=== PATIENT | male | born 1970 | race Caucasian/White ===

== ENCOUNTER 2017-05-18 13:18 | Emergency (ER) | payer SELFPAY, OTHER | END 2017-05-18 15:01 | disposition left against medical advice (07) | LOC: FTE 13:18 | DX: Z53.21 Procedure and treatment not carried out due to patient leaving prior to being seen by health care provider (principal) ==

== ENCOUNTER 2017-05-19 01:30 | Inpatient (IN) | payer OTHER ==
[2017-05-19] MEDS ORDERED: ONDANSETRON 4 MG INJ IV ×3 (02:00→10:30)
[2017-05-19] MEDS: PIPER-TAZO 3.375 GM IV (PMX) 100 ML IVPB ×3 (02:28→12:43)
[2017-05-19] MEDS: ACETAMINOPHEN 325 MG TAB PO (02:34)
[2017-05-19 06:54] LABS: ADD MAN DIFF? NO
[2017-05-19 06:56] LABS: WHITE BLOOD COUNT 7.6 10^3/ul (4.8-10.8)
[2017-05-19 06:56] LABS: BASOPHILS % 0.4 % (0.0-2.0); EOSINOPHILS # 0.2 10^3/ul (0.0-0.5); EOSINOPHILS % 2.8 % (0.0-7.0); HEMATOCRIT 42.3 % (42.0-52.0); HEMOGLOBIN 14.7 g/dl (14.0-18.0); LYMPHOCYTES # 1.7 10^3/ul (0.8-2.9); LYMPHOCYTES % 22.2 % (15.0-51.0); MEAN CORPUSCULAR HEMOGLOBIN 29.6 pg (29.0-33.0); MEAN CORPUSCULAR HGB CONC 34.8 g/dl (32.0-37.0); MEAN CORPUSCULAR VOLUME 85.1 fl (82.0-101.0); MEAN PLATELET VOLUME 9.8 fl (7.4-10.4); MONOCYTE # 0.8 10^3/ul (0.3-0.9); MONOCYTES % 10.5 % (0.0-11.0); NEUTROPHIL # 4.9 10^3/ul (1.6-7.5); NEUTROPHILS % 63.7 % (39.0-77.0); PLATELET COUNT 236 10^3/UL (140-415); RED BLOOD COUNT 4.97 10^6/ul (4.70-6.10)
[2017-05-19 07:21] LABS: ALANINE AMINOTRANSFERASE 40 IU/L (13-69); ALBUMIN/GLOBULIN RATIO 1.17; ALKALINE PHOSPHATASE 28 IU/L (42-121); ANION GAP 16 (8-16); ASPARTATE AMINO TRANSFERASE 23 IU/L (15-46); BILIRUBIN,INDIRECT 0.8 mg/dl (0-1.1); BILIRUBIN,TOTAL 0.8 mg/dl (0.2-1.3); BLOOD UREA NITROGEN 15 mg/dl (7-20); CALCIUM 8.8 mg/dl (8.4-10.2); CARBON DIOXIDE 25 mmol/L (21-31); CHLORIDE 106 mmol/L (97-110); CREATININE 0.96 mg/dl (0.61-1.24); GLUCOSE 140 mg/dl (70-220); MAGNESIUM 2.1 mg/dl (1.7-2.5); PHOSPHORUS 3.8 mg/dl (2.5-4.9); POTASSIUM 3.8 mmol/L (3.5-5.1); SODIUM 143 mmol/L (135-144); TOTAL PROTEIN 7.4 g/dl (6.1-8.1)
[2017-05-19] MEDS: morphine 2 MG INJ IV (08:24)
[2017-05-19] MEDS ORDERED: HYDROmorphONE (0.2 MG/ML) 10ML SYG IV ×3 (10:00)
[2017-05-19] MEDS ORDERED: PROCHLORPERAZINE 10 MG INJ IV (10:00)
[2017-05-19] MEDS ORDERED: MEPERIDINE 25 MG INJ IV (10:00)
[2017-05-19] MEDS ORDERED: FENTAnyl 50 MCG/ML VIAL IV ×3 (10:00)
[2017-05-19] MEDS ORDERED: DIPHENHYDRAMINE 50 MG INJ IV (10:00)
[2017-05-19] MEDS ORDERED: FENTAnyl 50 MCG/ML VIAL (10:02)
[2017-05-19] MEDS ORDERED: LIDOCAINE 2% (SDV) 5 ML INJ (10:02)
[2017-05-19] MEDS ORDERED: MIDAZOLAM 1 MG/ML 2 ML INJ (10:02)
[2017-05-19] MEDS ORDERED: DEXAMETHASONE 4 MG/ML 1 ML INJ (10:18)
[2017-05-19] MEDS ORDERED: ONDANSETRON 4 MG INJ (10:18)
[2017-05-19] MEDS ORDERED: KETOROLAC 30 MG INJ (10:24)
[2017-05-19] MEDS ORDERED: PROPOFOL 20 ML (10:26)
[2017-05-19] MEDS: BUPIVACAINE 0.25%/EPI (SDV) 30 ML INJ INJ (10:28)
[2017-05-19] MEDS ORDERED: OXYCODONE/ACETAMINOPHEN (5/325) TAB PO ×2 (10:30)
[2017-05-19] MEDS ORDERED: morphine 2 MG INJ IV (10:30)
[2017-05-19] MEDS ORDERED: DOCUSATE SODIUM 100 MG CAP PO (14:30)
[2017-05-19] MEDS ORDERED: KETOROLAC 30 MG INJ IV (14:30)
[2017-05-19] MEDS: metroNIDAZOLE 500 MG TAB PO (14:57)
[2017-05-19] MEDS: SOD CHLORIDE 0.9% 1,000 ML IV (14:58)
[2017-05-19] MEDS: CIPROFLOXACIN 500 MG TAB PO (17:56)
[2017-05-19] MEDS ORDERED: LACTOBACILLUS RHAMNOSUS CAP PO (21:00)
== END 2017-05-19 19:30 | disposition home or self-care (01) | DRG 395 ==
LOC: MS2 01:30
PROC: 0D9Q0ZX Drainage of Anus, Open Approach, Diagnostic (ICD-10-PCS; principal; 2017-05-19 10:03)
DX: K61.0 Anal abscess (principal); E66.9 Obesity, unspecified; Z68.34 Body mass index [BMI] 34.0-34.9, adult
CPT/HCPCS: 80053; 83735; 84100; 85025; 87070; 87075; 87116

== ENCOUNTER 2017-09-27 18:57 | Emergency (ER) | payer OTHER ==
[2017-09-27 22:22] LABS: ADD MAN DIFF? NO
[2017-09-27 22:23] LABS: BASOPHILS % 0.4 % (0.0-2.0); EOSINOPHILS # 0.2 10^3/ul (0.0-0.5); EOSINOPHILS % 2.2 % (0.0-7.0); HEMATOCRIT 43.9 % (42.0-52.0); HEMOGLOBIN 15.2 g/dl (14.0-18.0); LYMPHOCYTES # 2.6 10^3/ul (0.8-2.9); LYMPHOCYTES % 36.4 % (15.0-51.0); MEAN CORPUSCULAR HEMOGLOBIN 29.7 pg (29.0-33.0); MEAN CORPUSCULAR HGB CONC 34.6 g/dl (32.0-37.0); MEAN CORPUSCULAR VOLUME 85.7 fl (82.0-101.0); MEAN PLATELET VOLUME 10.1 fl (7.4-10.4); MONOCYTE # 0.9 10^3/ul (0.3-0.9); MONOCYTES % 11.7 % (0.0-11.0); NEUTROPHIL # 3.5 10^3/ul (1.6-7.5); NEUTROPHILS % 48.9 % (39.0-77.0); PLATELET COUNT 241 10^3/UL (140-415); RED BLOOD COUNT 5.12 10^6/ul (4.70-6.10); RED CELL DISTRIBUTION WIDTH 12.2 % (11.5-14.5)
[2017-09-27 22:23] LABS: WHITE BLOOD COUNT 7.3 10^3/ul (4.8-10.8)
[2017-09-27] MEDS: HYDROCODONE/APAP (5/325) TAB PO (22:41)
[2017-09-27 22:52] LABS: ALANINE AMINOTRANSFERASE 48 IU/L (13-69); ALBUMIN 4.6 g/dl (3.3-4.9); ALBUMIN/GLOBULIN RATIO 1.31; ALKALINE PHOSPHATASE 28 IU/L (42-121); ANION GAP 15 (8-16); ASPARTATE AMINO TRANSFERASE 32 IU/L (15-46); BILIRUBIN,INDIRECT 0.2 mg/dl (0-1.1); BILIRUBIN,TOTAL 0.2 mg/dl (0.2-1.3); BLOOD UREA NITROGEN 16 mg/dl (7-20); CALCIUM 9.6 mg/dl (8.4-10.2); CARBON DIOXIDE 27 mmol/L (21-31); CHLORIDE 106 mmol/L (97-110); CREATININE 1.16 mg/dl (0.61-1.24); GLUCOSE 95 mg/dl (70-220); POTASSIUM 4.3 mmol/L (3.5-5.1); SODIUM 144 mmol/L (135-144); TOTAL PROTEIN 8.1 g/dl (6.1-8.1)
[2017-09-27 23:00] LABS: B-TYPE NATRIURETIC PEPTIDE 24 PG/ML (0-125)
== END 2017-09-27 23:53 | disposition home or self-care (01) ==
LOC: FTE 23:53
DX: M54.42 Lumbago with sciatica, left side (principal); R60.9 Edema, unspecified; R06.02 Shortness of breath
CPT/HCPCS: 71046; 80053; 83880; 85025; 93005; 93971; 99285-25